=== PATIENT | female | born 1965 | race Two or more races ===

== ENCOUNTER 2021-04-10 08:07 | Outpatient (CLI) | payer OTHER | END 2021-04-10 08:08 | disposition home or self-care (01) | LOC: NUCLEAR 08:07 | PROVIDERS: ATTEND Internal Medicine Rheumatology | DX: M06.4 Inflammatory polyarthropathy (principal); M15.0 Primary generalized (osteo)arthritis | CPT/HCPCS: 78315; A9503 ==